=== PATIENT | female | born 1995 | race Caucasian/White ===

== ENCOUNTER 2019-12-07 02:02 | Emergency (ER) | payer SELFPAY ==
[~2019-12-07] VITALS: Ht 167.6 cm; Wt 63.6 kg
[2019-12-07 02:08] VITALS: BP 118/58
[2019-12-07 02:25] LABS: COLLECTION METHOD CLEAN CATCH
[2019-12-07 02:32] LABS: MUCOUS Present /lpf; PH 5 (5-8); SQUAMOUS EPITHELIAL 0-2 /hpf; URINE APPEARANCE Clear; URINE BACTERIA Rare /hpf; URINE BILIRUBIN Negative (NEGATIVE); URINE BLOOD Negative (NEGATIVE); URINE COLOR Yellow; URINE GLUCOSE Negative (NEGATIVE); URINE KETONE 1+ (NEGATIVE); URINE LEUKOCYTE ESTERASE 2+ (NEGATIVE); URINE NITRATE Negative (NEGATIVE); URINE PROTEIN(semi-quant) 1+ (NEGATIVE); URINE UROBILINOGEN Negative (NEGATIVE)
[2019-12-07] MEDS ORDERED: OMNICEF 300MG300 MG PO (02:54)
[2019-12-07 03:20] VITALS: PULSE 80; TEMP 98.5
== END 2019-12-07 03:20 | disposition home or self-care (01) ==
LOC: COL.ER 02:02
PROVIDERS: Physician Assistant
DX: N12 Tubulo-interstitial nephritis, not specified as acute or chronic (principal)
CPT/HCPCS: J0696